=== PATIENT | female | born 1985 | race Two or more races ===

== ENCOUNTER 2016-07-22 07:20 | Emergency (ER) | payer OTHER ==
[2016-07-22 07:49] LABS: UA SPECIFIC GRAVITY >=1.030 (1.005-1.035); microscopic required? YES; urine erythrocyte 3+ (NEGATIVE)
[2016-07-22 08:00] LABS: BASOPHIL % 0.7 % (0-2); PLATELET COUNT 201 x10^3mcL (130-400); RED CELL DISTRIBUTION WIDTH 13.6 % (11.5-14.5)
[2016-07-22 10:56] VITALS: BP 89/62
== END 2016-07-22 10:56 | disposition home or self-care (01) ==
LOC: ED 07:20
PROVIDERS: Emergency Medicine
DX: R10.32 Left lower quadrant pain (principal)